=== PATIENT | female | born 1950 | race Caucasian/White ===

== ENCOUNTER 2017-02-04 20:57 | Emergency (ER) | payer OTHER ==
[2017-02-04 21:08] VITALS: TEMP 97.5; O2SAT 94
[2017-02-04] MEDS ORDERED: LET GEL TOPICAL 1 EA SYR TP ONE ×2 (21:18→21:25)
--- NOTE | 2017-02-04 21:23 | EDPHY ---
H & P Stated Complaint: pt says she fell, has hematoma above eye, on blood thinners Time Seen by Provider: 02/04/17 21:12 HPI/ROS: CHIEF COMPLAINT: Fall HISTORY OF PRESENT ILLNESS: Patient is a 66-year-old female who comes to the emergency department after a fall. She states that she tripped and hit the right side of her face on the ground. She has a hematoma to her right forehead and a small laceration. Normal vision. She denies headache neck pain or back pain. She takes aspirin but no anticoagulants. She denies chest pain or shortness of breath. She had a fall several months ago as well. She is declining CT scan but her son has convinced her to get one . REVIEW OF SYSTEMS: Constitutional: denies: chills, fever, recent illness, recent injury EENTM: denies: blurred vision, double vision, nose congestion Respiratory: denies: cough, shortness of breath Cardiac: denies: chest pain, irregular heart rate, lightheadedness, palpitations Gastrointestinal/Abdominal: denies: abdominal pain, diarrhea, nausea, vomiting, blood streaked stools Genitourinary: denies: dysuria, frequency, hematuria, pain Musculoskeletal: denies: joint pain, muscle pain Skin: See HPI Neurological: denies: headache, numbness, paresthesia, tingling, dizziness, weakness Hematologic/Lymphatic: denies: blood clots, easy bleeding, easy bruising Immunologic/allergic: denies: HIV/AIDS, transplant EXAM: GENERAL: Well-appearing, well-nourished and in no acute distress. HEAD: Ping-pong ball sized hematoma to right confucianism region. Small laceration just lateral to the right eyebrow. Bleeding controlled. EYES: Pupils equal round and reactive to light, extraocular movements intact, sclera anicteric, conjunctiva are normal. ENT: TMs normal, nares patent, oropharynx clear without exudates. Moist mucous membranes. NECK: No midline tenderness, Normal range of motion, supple without lymphadenopathy or JVD. LUNGS: Breath sounds clear to auscultation bilaterally and equal. No wheezes rales or rhonchi. HEART: Regular rate and rhythm without murmurs, rubs or gallops. ABDOMEN: Soft, nontender, normoactive bowel sounds. No guarding, no rebound. No masses appreciated. BACK: No CVA tenderness, no spinal tenderness, step-offs or deformities EXTREMITIES: Normal range of motion, no pitting or edema. No clubbing or cyanosis. NEUROLOGICAL: Cranial nerves II through XII grossly intact. Normal speech, normal gait. 5/5 strength, normal movement in all extremities, normal sensation PSYCH: Normal mood, normal affect. SKIN: Warm, dry, normal turgor, no visible rashes or lesions. Source: Patient Exam Limitations: No limitations - Medical/Surgical History Hx Asthma: Yes Hx Chronic Respiratory Disease: No Hx Diabetes: No Hx Cardiac Disease: Yes Hx Renal Disease: No Hx Cirrhosis: No Hx Alcoholism: No Hx HIV/AIDS: No Hx Splenectomy or Spleen Trauma: No Other PMH: aortic insuff, hypertension - Family History Significant Family History: No pertinent family hx - Social History Smoking Status: Former smoker Alcohol Use: Sober Drug Use: None Constitutional: Initial Vital Signs Temperature (C) 36.4 C 02/04/17 21:01 Heart Rate 93 02/04/17 21:01 Respiratory Rate 16 02/04/17 21:01 Blood Pressure 178/104 H 02/04/17 21:01 O2 Sat (%) 94 02/04/17 21:01 O2 Delivery Mode Room Air Allergies/Adverse Reactions: Penicillins Allergy (Verified 02/04/17 21:09) wasp stings Allergy (Uncoded 02/04/17 21:09) Medical Decision Making - Diagnostics Imaging Results: Imaging Impressions Head CT 02/04/17 21:18 Impression: 1. Mild age-related atrophy. 2. No hemorrhage, mass effect, or definite acute peripheral infarct. 3. Soft tissue swelling along the superolateral aspect of the right orbit without underlying fracture. Findings discussed with Dimitri Lane M.D. at 21:54 hour, 02/04/2017. Imaging: Discussed imaging studies w/ star route mail driver Radiologist Procedures: Procedure: Laceration repair. Verbal consent was obtained from the patient. The 3 cm right eyebrow laceration was anesthetized with 0.5% bupivacaine with epinephrine locally infiltrated. The wound was irrigated copiously according to protocol, draped and explored to its base. It was approximately 1/2 cm deep. There were no deep structures involved. No tendon, nerve, or vascular injury was identified when explored through full range of motion. No foreign body was identified. The wound was repaired with 6.0 silk, 7 sutures, interrupted. The wound repair was complex with multiple flap realignment. The procedure was performed by myself. A dressing was then placed with sterile gauze and bacitracin. ED Course/Re-evaluation: Patient tolerated suture repair. She is reassured by CT results. She is eager to go home. Discussed with family continued care. Differential Diagnosis: Partial list of the Differential diagnosis considered include but were not limited to; hematoma, laceration and although unlikely based on the history and physical exam, I also considered fracture, intracranial hemorrhage, neck injury. I discussed these differential diagnoses and the plan with the patient as well as the usual and expected course. The patient understands that the diagnosis is provisional and that in medicine we are not always correct and that further workup is often warranted. Usual and customary warnings were given. All of the patient's questions were answered. The patient was instructed to return to the emergency department should the symptoms at all worsen or return, otherwise to followup with the physician as we discussed. - Data Points Medications Given: Discontinued Medications Tetracaine/Epinephrine/Lidocaine (Let Gel Topical) 1 ea TP EDNOW ONE Stop: 02/04/17 21:26 Last Admin: 02/04/17 21:44 Dose: 1 ea Departure - Departure Disposition: Home, Routine, Self-Care Clinical Impression: Hematoma, Laceration Condition: Fair Instructions: Care For Your Stitches (ED), Laceration (ED), Hematoma (ED) Additional Instructions: Have your sutures removed in 7 days. Referrals: NONE *PRIMARY CARE P,. [Unknown] - As per Instructions Summer Valencia MD [Medical Doctor] - As per Instructions
[2017-02-04 22:46] VITALS: BP 143/72; PULSE 80; RESP 18
== END 2017-02-04 22:46 | disposition home or self-care (01) ==
PROC: 0HQ1XZZ Repair Face Skin, External Approach (ICD-10-PCS; principal; 2017-02-04)
DX: S01.81XA Laceration without foreign body of other part of head, initial encounter (principal); I10 Essential (primary) hypertension; J45.909 Unspecified asthma, uncomplicated; Z87.891 Personal history of nicotine dependence; W01.198A Fall on same level from slipping, tripping and stumbling with subsequent striking against other object, initial encounter; Y99.8 Other external cause status; Y93.89 Activity, other specified

== ENCOUNTER → 2017-07-27 | Outpatient (CLI) | payer OTHER | LOC: BHFA 10:45 | PROVIDERS: ATTEND Internal Medicine Cardiovascular Disease | DX: R06.02 Shortness of breath (principal); I35.1 Nonrheumatic aortic (valve) insufficiency ==